=== PATIENT | female | born 1945 | race Caucasian/White ===

== ENCOUNTER → 2018-03-09 | Outpatient (CLI) | payer MEDICARE, BC, OTHER ==
[~2018-03-09] MED LIST: ALLEGRA ALLERGY60 MG PO; ARTIFICIAL TEAR15 M3 OPHTHALMIC; ASPIRIN325 PO; ATENOLOL 25MG T25 M1 PO; CEFUROXIME500 MG PO; CENTRUM SILVER1 EAC4 PO; CINNAMON PLUS1 EACH PO; CITRACAL + D M1 EACH PO; COLACE100 MG PO; DILAUDID 2 MG TA2 MG PO; DILAUDID2 MG PO; ELIQUIS2.5 MG PO; ELOCON15 GM TOP; GLUCOPHAGE XR500 MG PO; IBUPROFEN 200200 M1 PO; LESCOL XL80 MG PO; METAMUCIL PAC1 UDPKT PO; METAMUCIL1 EAC1 PO; MIRALAX17 GM PO; MOM PO; NASAL & SINUS D30 MG PO; OXYCODONE HCL 55 MG PO; PRILOSEC 20 MG20 MG PO; PSEUDOEPHEDRINE30 MG PO; SYNTHROID75 MCG PO; SYSTANE ULTRA 010 ML OPHTHALMIC; TOPROL XL25 MG PO; TOPROL XL50 MG PO; TRAMADOL 50 MG50 MG PO; TYLENOL325 MG PO; VESICARE10 M1 PO; VITAMIN D1000 UNI1 PO; XARELTO10 MG PO; ZETIA10 MG PO
== END ==
LOC: M.RAD 12:45
DX: Z12.31 Encounter for screening mammogram for malignant neoplasm of breast (principal); I10 Essential (primary) hypertension; E11.9 Type 2 diabetes mellitus without complications; E78.5 Hyperlipidemia, unspecified; E03.9 Hypothyroidism, unspecified

== ENCOUNTER → 2019-05-05 | Outpatient (CLI) | payer MEDICARE, BC, OTHER | LOC: M.RAD 05-02 13:20 | DX: Z12.31 Encounter for screening mammogram for malignant neoplasm of breast (principal) ==

== ENCOUNTER → 2019-06-01 | Outpatient (CLI) | payer MEDICARE, BC, OTHER | LOC: M.MRI 13:16 | DX: M47.816 Spondylosis without myelopathy or radiculopathy, lumbar region (principal); Z96.642 Presence of left artificial hip joint ==